=== PATIENT | female | born 1995 | race American Indian/Alaskan Native ===

== ENCOUNTER 2020-05-02 15:19 | Emergency (ER) | payer SELFPAY ==
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
[2020-05-02 18:31] VITALS: BP 118/77
== END 2020-05-02 18:31 | disposition home or self-care (01) ==
LOC: ED 15:19
DX: B00.9 Herpesviral infection, unspecified (principal); Z79.899 Other long term (current) drug therapy
CPT/HCPCS: 99282